=== PATIENT | male | born 2000 | race African-American/Black ===

== ENCOUNTER 2024-05-14 13:38 | Emergency (ER) | payer SELFPAY ==
[2024-05-14 13:40] VITALS: BP 131/78
--- NOTE | 2024-05-14 15:35 | ED.GENMED ---
History of Present Illness
General
Chief Complaint: Skin Problem
Time Seen by Provider: 05/14/24 15:11
History of Present Illness
History of Present Illness:
23-year-old male presents to the emergency department for evaluation of itching and burning lesions to the penis for the past several days. Had a similar flareup 1 month ago and was treated with valacyclovir. No penile pain or penile discharge.
He is sexually active.
Review of Systems
Review of Systems
Allergies reviewed?: Yes
All Other Systems: ROS reviewed and negative except as documented in HPI and ROS
Phy Exam
Physical Exam
Physical Exam:
GEN: Well appearing, NAD, WDWN
HEENT: Oral mucosa moist, no scleral icterus
Cardiac: Regular rate
Lung: No respiratory distress, no tachypnea
: Vesicular/ulcerated lesions to the right penile shaft as well as suprapubic space with associated right inguinal adenopathy
MSK: No gross deformity or injuries
Skin: Good color, no pallor or jaundice, no rashes
Neuro: AO x3, moves all extremities freely
Psych: Calm, cooperative
Course
Vital Signs
Initial and Last Documented VS:
Initial Vital Signs
Temp Pulse Resp BP Pulse Ox
98.1 F 86 16 131/78 99
05/14/24 13:40 05/14/24 13:40 05/14/24 13:40 05/14/24 13:40 05/14/24 13:40
Last Documented Vital Signs
Temp Pulse Resp BP Pulse Ox
98.1 F 86 16 131/78 99
05/14/24 13:40 05/14/24 13:40 05/14/24 13:40 05/14/24 13:40 05/14/24 13:40
MDM/Problems Addressed
MDM/Problems Addressed:
Clinical exam consistent with genital herpes. Will start valacyclovir, as this is his second flareup I suggested to the patient to discuss suppressive therapy with his primary care physician
*Critical Care Note
Total Time (30-74mins, 75-104mins- exclusive of procedures): Not Applicable
ED Attending Note
-
Portions of this chart may have been created with voice recognition software.� Occasional wrong word or��sound alike� substitutions may have occurred due to the inherent limitations of voice recognition software.
Discharge Plan
Departure
Patient Disposition: Home (Routine Discharge)
Date of Disposition: 05/14/24
Time of Disposition: 15:37
Patient with high blood pressure during this ER visit?: No
Discharge Problem:
Genital herpes
Instructions: Genital herpes
Prescriptions:
New
valacyclovir 1 gram tablet
1,000 mg PO BID 10 Days Qty: 20 0RF
Activity Restrictions/Additional Instructions:
Avoid sexual activity while you have visible sores/rashes
Interventions
Interventions:
*Risk Screen - Suicide Last Done: 05/14/24 13:40
*General Assessment Last Done: 05/14/24 13:40
*ED COVID-19 Vaccine History Last Done: 05/14/24 13:40
*Nursing Disposition Last Done: 05/14/24 16:02
Discharge Date and Time
Discharge Date/Time: 05/14/24 16:04
Print Language: [id number]
== END 2024-05-14 16:04 | disposition home or self-care (01) ==
LOC: EMR 13:38
PROVIDERS: EMERGENCY PHYSICIAN Student in an Organized Health Care Education/Training Program; FAMILY PHYSICIAN Internal Medicine Pulmonary Disease
DX: A60.02 Herpesviral infection of other male genital organs (principal)
CPT/HCPCS: 99282